=== PATIENT | male | born 1980 | race Caucasian/White ===

== ENCOUNTER 2016-05-05 16:10 | Emergency (ER) | payer MEDICARE ==
[~2016-05-05 16:10] MED LIST: LORTAB 7.5-5001 TAB PO; PHENERGAN PO
== END 2016-05-05 16:18 | disposition left against medical advice (07) ==
LOC: SED 16:10
DX: T40.1X1A Poisoning by heroin, accidental (unintentional), initial encounter (principal); I25.2 Old myocardial infarction; F17.210 Nicotine dependence, cigarettes, uncomplicated; Z88.8 Allergy status to other drugs, medicaments and biological substances
CPT/HCPCS: 99282

== ENCOUNTER 2016-05-14 20:30 | Emergency (ER) | payer MEDICARE, OTHER | END 2016-05-14 22:42 | disposition home or self-care (01) | LOC: SED 20:30 | DX: T40.1X1A Poisoning by heroin, accidental (unintentional), initial encounter (principal); F17.200 Nicotine dependence, unspecified, uncomplicated; Z88.8 Allergy status to other drugs, medicaments and biological substances | CPT/HCPCS: 96374; 99283 ==

== ENCOUNTER 2016-05-23 14:35 | Inpatient (IN) | payer MEDICARE ==
--- NOTE | ~2016-05-23 | DS ---
Unit #: [id number] #: [id number] Patient: ROMERO LYNN [id number] [place] [address] [id number] MR#: [id number] NAME: ROMERO LYNN ROOM: P171 Age: 35 Sex: M Admission Date: 05/23/2016 : 1980 Discharge Date: 05/25/2016 Attending Physician: Willie Torres M.D. DISCHARGE SUMMARY REASON FOR ADMISSION Romero is a 35-year-old man with a history of bipolar disorder and alcohol dependence, who presented reporting he has stopped his medications and relapsed on alcohol about a week ago after discovering that his ex- had in [place] and been brought back to [place] and buried, all without his knowledge. He was unable to contract for safety and was admitted for stabilization. DIAGNOSTIC STUDIES LABORATORY RESULTS: Ammonia level was mildly elevated at 46. Depakote level was low at 13. HOSPITAL COURSE The patient was admitted and placed on suicide precautions. His home medications were restarted. The alcohol detox protocol was not indicated. He attended psychotherapy groups and activities and participated well. He was able to contract for safety the following day with no further suicidal ideation, intent, or plan and after meeting with the grief counselor. DISCHARGE DIAGNOSES AXIS I: Bipolar disorder, depressed; alcohol dependence. AXIS II: No diagnosis. AXIS III: Back pain. AXIS IV: AXIS V: DISCHARGE INSTRUCTIONS The patient will follow up with [facility] and primary care physician. DISCHARGE MEDICATIONS Prozac 40 mg daily for depression, Depakote ER 500 mg b.i.d. for mood stability, Thorazine 100 mg at bedtime for sleep, Remeron 50 mg at bedtime for depression, Neurontin 600 mg t.i.d. for back pain. CONDITION AT DISCHARGE Improved. PROGNOSIS Fair to good. DIET AND ACTIVITY Unit #: [id number] #: [id number] Patient: ROMERO LYNN Per primary care doctor. Dictated by... Willie Torres M.D. JOE/alla TD: 05/26/2016 07:25 JOB #: [id number] DISCHARGE SUMMARY Page 1 of 1 X Willie Torres MD DISCHARGE SUMMARY
--- NOTE | ~2016-05-23 | HP ---
Unit #: [id number] #: [id number] Patient: ROMERO LYNN [id number] [place] [address] [id number] MR#: [id number] NAME: ROMERO LYNN ROOM: P171 Age: 35 Sex: M Admission Date: 05/23/2016 : 1980 Attending Physician: Willie Torres M.D. Admitting Physician: Willie Torres M.D. Primary Care Physician: Primary Care Physician No HISTORY AND PHYSICAL HISTORY OF PRESENT ILLNESS Romero is a 35 year old admitted to [facility] because of his history of alcohol. He also reports depression and verbalizes wanting to hurt himself. He has had other admissions to this facility. PAST MEDICAL HISTORY 1. Long history of alcohol abuse. 2. History of closed head injury, 2007 and again in July 2012 which required extensive facility reconstruction. 3. Degenerative disc disease. PAST SURGICAL HISTORY As above. ALLERGIES Seasonique SOCIAL HISTORY Smokes one pack per day. Drinks alcohol on occasion. Has a history of alcohol abuse. Denies any illicit drugs. FAMILY HISTORY Medically noncontributory. REVIEW OF SYSTEMS CONSTITUTIONAL: No fever or chills. HEENT: Denies any sore throat, ear pain or runny nose. CARDIOVASCULAR: Denies chest pain, irregular heart rhythm or palpitations. CHEST: Denies shortness of breath or cough. No hemoptysis. GASTROINTESTINAL: Denies nausea, vomiting, diarrhea or chronic constipation. ENDOCRINE: Denies history of increased thirst or urination. No recent significant weight loss or gain. GENITOURINARY: Denies dysuria, frequency, or hematuria. SKIN: Denies any rashes. HEMATOLOGIC: Denies history of increased bleeding or bruising. MUSCULOSKELETAL: Denies any hot, swollen joints. No generalized muscle pain. NEUROLOGIC: Denies problems with vision or speech. No frequent, severe headaches. No numbness, tingling or weakness in any extremities. Denies loss of bladder or bowel control. CURRENT MEDICATIONS Unit #: [id number] #: [id number] Patient: ROMERO LYNN 1. Thorazine 100 mg q.h.s. 2. Depakote ER 500 mg b.i.d. 3. Milk of Magnesia p.r.n. 4. Maalox p.r.n. 5. Tylenol p.r.n. 6. Neurontin 600 mg t.i.d. 7. Nicotine patch 14 mg daily 8. Prozac 40 mg daily PHYSICAL EXAMINATION GENERAL: Alert, well-nourished, in no apparent distress. VITAL SIGNS: Blood pressure 122/78, heart rate 74, respirations 16, temperature 98.6. WEIGHT: 142 pounds. HEIGHT: 5'11". SKIN: Warm and dry. He has a round hypo pigmented rash along his posterior neck and shoulders. HEENT: Normocephalic. TMs not viewed. Oral and nasal passages clear. Conjunctivae clear. Pupils equal, round and reactive to light and accommodation. Extraocular movements intact. NECK: Supple without lymphadenopathy or thyromegaly. HEART: Regular rate and rhythm without murmur. LUNGS: Clear. ABDOMEN: Soft, nontender. : Not done. EXTREMITIES: No evidence of cyanosis, clubbing or edema. Moves all extremities without focal deficit. NEUROLOGICAL: Grossly within normal limits. Cranial Nerves: II: Visual farris are intact. III, IV AND : Extraocular movements are intact. Pupils are equal, round and reactive to light. V: Facial sensation is grossly normal. VII: Facial movements and expression are normal. VIII: Auditory acuity grossly intact. IX, X: Uvula is midline. Phonation is normal. XI: Patient shrugs shoulders and turns head normally. XII: Tongue protrudes in the midline. Sensory and Motor Function: Sensory and motor sensation is grossly normal. Motor: moves all extremities well. Coordination: Gait is normal. Deep Tendon Reflexes: Intact. IMPRESSION 1. Psychiatric admission 2. Rash, tinea versicolor RECOMMENDATIONS PSYCHIATRIC: Per psychiatrist. MEDICAL: I see no contraindications to participating in facility's activities. MEDICAL PROGNOSIS Good. MEDICAL CONDITION Stable. Unit #: [id number] #: [id number] Patient: ROMERO LYNN Dictated by... Maxine Perdue P.A.-C. for Capri Bragg/gerri TD: 05/23/2016 23:19 JOB #: [id number] HISTORY AND PHYSICAL Page 1 of 1 X Maxine Perdue HISTORY AND PHYSICAL
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
== END 2016-05-25 12:50 | DRG 885 ==
LOC: P1E 14:35
PROC: HZ2ZZZZ Detoxification Services for Substance Abuse Treatment (ICD-10-PCS; principal; 2016-05-23)
DX: F31.9 Bipolar disorder, unspecified (principal); R45.851 Suicidal ideations; F17.210 Nicotine dependence, cigarettes, uncomplicated; F10.20 Alcohol dependence, uncomplicated
CPT/HCPCS: 80164; 82140; 82947

== ENCOUNTER 2016-09-19 21:00 | Inpatient (IN) | payer MEDICARE ==
[~2016-09-19] VITALS: Ht 177.8 cm; Wt 63.5 kg
--- NOTE | ~2016-09-19 | HP ---
Unit #: [id number] #: [id number] Patient: ROMERO LYNN [id number] [place] [address] [id number] MR#: [id number] NAME: ROMERO LYNN ROOM: P178 Age: 36 Sex: M Admission Date: 09/20/2016 : 1980 Attending Physician: Willie Torres M.D. Admitting Physician: Willie Torres M.D. Primary Care Physician: Primary Care Physician No HISTORY AND PHYSICAL Romero is a 36-year-old male admitted on 09/20/[address] [place] [address]. He was discharged prior to history and physical being completed. Dictated by..Matt Frye/gerri TD: 09/24/2016 04:10 JOB #: [id number] HISTORY AND PHYSICAL Page 1 of 1 X NORMA STANLEY APRN X HISTORY AND PHYSICAL
== END 2016-09-21 15:40 | disposition left against medical advice (07) | DRG 894 ==
LOC: P1E 09-20 16:58
DX: F10.129 Alcohol abuse with intoxication, unspecified (principal); R45.851 Suicidal ideations; F32.9 Major depressive disorder, single episode, unspecified
CPT/HCPCS: 80164; 82140; 86592